=== PATIENT | female | born 1945 | race Caucasian/White ===

== ENCOUNTER → 2016-04-11 | Outpatient (REF) | payer MEDICARE, OTHER ==
[~2016-04-11] MED LIST: ADV250-14 IH; ALBU8.5H2 IH; ASPI-860 PO; CALC-250 PO; CALC600T12 PO; DICY10CA12 PO; FRSM20T PO; GLUC1CAP34 PO; LOSA100T3 PO; MAG355OR31 PO; MNTL10T PO; MTC10T PO; MULT1TAB69 PO; OMEP20CA6 PO; RANI150T11 PO; TRAZ-28 PO
[2016-04-11 16:06] LABS: MEAN CORPUSCULAR VOLUME 89 FL (80-100); MEAN PLATELET VOLUME 8.7 FL (6.0-9.5); PLATELET COUNT 196 10^3uL (150-450); WHITE BLOOD COUNT 5.81 10^3uL (4.0-11.0)
[2016-04-11 16:16] LABS: ALBUMIN 4.2 g/dL (3.4-5.0); ANION GAP 13.5 MEQ/L (3-15); CALCULATED IONIZED CALCIUM 4.4 mg/dL (3.8-4.6); TOTAL PROTEIN 6.7 g/dL (6.4-8.5)
[2016-04-11 17:00] LABS: BAND NEUTROPHILS % 2 % (0-6); LYMPHOCYTES # 1.7 #; MEAN CORPUSCULAR HEMOGLOBIN 31.9 PG (26.0-34.0); MEAN CORPUSCULAR HGB CONC 35.6 g/dL (31.0-37.0); MONOCYTES # 0.8 #; MONOCYTES % 16 % (3-11); SEGMENTED NEUTROPHILS % 45 % (51-67)
[2016-04-11 17:01] LABS: EOSINOPHILS % 7 % (0-4); RBC MORPH NORMAL (NORMAL); TOTAL CELLS COUNTED 100
== END ==
LOC: LAB 15:28
PROVIDERS: ATTEND Nurse Practitioner Family
DX: R63.5 Abnormal weight gain (principal); E87.1 Hypo-osmolality and hyponatremia
CPT/HCPCS: 80053; 84439; 84443; 85025

== ENCOUNTER → 2016-04-21 | Outpatient (REF) | payer MEDICARE, OTHER ==
[2016-04-21 11:47] LABS: ANION GAP 15.4 MEQ/L (3-15)
[2016-04-21 11:51] LABS: BILIRUBIN,URINE Negative (Negative); CLARITY,URINE Clear; COLOR,URINE Yellow; GLUCOSE, URINE (UA) Negative (Negative); LEUKOCYTE ESTERASE, URINE Negative (Negative); UROBILINOGEN,URINE 0.2 mg/dL (0.2-1.0)
[2016-04-21 12:02] LABS: RBC,URINE 0-2 /HPF; URINE CENTRIFUGED VOLUME 12 mL
== END ==
LOC: LAB 11:24
PROVIDERS: ATTEND Nurse Practitioner Family
DX: I10 Essential (primary) hypertension (principal)
CPT/HCPCS: 80048; 81003; 81015

== ENCOUNTER → 2016-05-03 | Outpatient (CLI) | payer MEDICARE, OTHER | LOC: RAD 08:32 | PROVIDERS: ATTEND Family Medicine | DX: Z12.31 Encounter for screening mammogram for malignant neoplasm of breast (principal) ==

== ENCOUNTER → 2016-05-19 | Outpatient (CLI) | payer MEDICARE, OTHER | LOC: LAB 08:42 | PROVIDERS: ATTEND Family Medicine | DX: K52.9 Noninfective gastroenteritis and colitis, unspecified (principal) | CPT/HCPCS: 87507 ==

== ENCOUNTER → 2016-08-10 | Outpatient (CLI) | payer MEDICARE, OTHER ==
--- NOTE | 2016-08-10 13:53 | Diagnostic Imaging Report ---
Technique: Grayscale, pulsed and color Doppler imaging of the left lower extremity. Findings: The left common femoral, femoral and popliteal veins are patent without evidence of DVT. Visualized proximal aspects of the greater saphenous, deep femoral, posterior tibial and peroneal veins are also patent. All of the evaluated deep venous structures demonstrate normal compressibility and waveform augmentation where applicable. Impression: No left lower extremity deep venous thrombosis (DVT). Dictated by: Dictated on workstation # [id number]
== END ==
LOC: RAD 12:50
PROVIDERS: ATTEND Physician Assistant Surgical
DX: M79.89 Other specified soft tissue disorders (principal)